=== PATIENT | female | born 2000 | race African-American/Black ===

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

== ENCOUNTER 2019-10-14 22:41 | Emergency (ER) | payer SELFPAY ==
[~2019-10-14] VITALS: Ht 165.1 cm; Wt 84.1 kg
[~2019-10-14 22:41] MED LIST: DULCOLAX STOOL100 MG PO; GLYCOLAX527 GM PO; KEFLEX500 MG PO; VYVANSE40 MG
[2019-10-14 22:45] VITALS: Ht 165.1 cm; Wt 84.1 kg
[2019-10-14 23:43] LABS: HEMATOCRIT 41.5 % (36.0-48.0); LYMPHOCYTES 25.7 % (15-50); MCH 28.1 pg (26.0-34.0); MCHC 33.7 g/dL (31.0-37.0); MCV 83.2 fL (80.0-100.0); MEAN PLATELET VOLUME 11.9 fL (7.4-10.4); NEUTROPHILS 65.6 % (40-80); PLATELET COUNT 244 10x3/uL (130-400); RBC 4.99 10x6/uL (4.00-5.40); RDW 14.3 % (11.5-14.5)
[2019-10-14 23:52] LABS: CALC OSMOLALITY 275 mosm/kg (275-300); CALCIUM 9.2 mg/dL (8.5-10.1); CARBON DIOXIDE 23.9 mmol/L (21.0-32.0); CHLORIDE - SERUM 105 mmol/L (98-107); CREATININE - SERUM 0.7 mg/dL (0.6-1.3); GLUCOSE 87 mg/dL (74-106); POTASSIUM - SERUM 3.1 mmol/L (3.5-5.1); SODIUM 140 mmol/L (136-145); UREA NITROGEN 7 mg/dL (7-18); eGFR NON AFRICAN AMERICAN > 90 mL/min (90-120)
[2019-10-14 23:55] LABS: HCG SERUM NEGATIVE (NEGATIVE)
[2019-10-15 00:07] LABS: ALBUMIN 3.9 g/dL (3.4-5.0); ALKALINE PHOSPHATASE 61 U/L (46-116); ALT (SGPT) 48 U/L (10-68); BILIRUBIN - TOTAL 0.83 mg/dL (0.2-1.3); PROTEIN - SERUM 8.2 g/dL (6.4-8.2); THYROID STIMULATING HORMONE 1.04 uIU/mL (0.36-3.74)
[2019-10-15] MEDS ORDERED: VISTARIL25 MG PO (00:22)
[2019-10-15 00:50] VITALS: BP 126/87
== END 2019-10-15 00:51 | disposition home or self-care (01) ==
LOC: D.ER 22:41
PROVIDERS: Family Medicine
DX: F41.9 Anxiety disorder, unspecified (principal)